=== PATIENT | male | born 1965 | race Caucasian/White ===

== ENCOUNTER 2022-02-15 09:26 | Inpatient (IN) | payer OTHER ==
[~2022-02-15] VITALS: Ht 182.9 cm; Wt 82.4 kg
[2022-02-15 09:48] LABS: HEMOGLOBIN 16.8 gm/dl (14.0-17.5); RED BLOOD COUNT 5.17 M/UL (4.20-5.50); WHITE BLOOD COUNT 6.9 K/UL (4.5-11.0)
[2022-02-15 10:11] LABS: BUN/CREATININE RATIO 17 (0-10)
[2022-02-15] MEDS ORDERED: METFORMIN HCL500 M2 PO (14:12)
[2022-02-15] MEDS ORDERED: ASPIRIN EC81 MG PO (14:13)
[2022-02-15] MEDS ORDERED: VARENICLINE TART1 MG PO (14:13)
[2022-02-15] MEDS ORDERED: LISINOPRIL2.5 MG PO (14:14)
[2022-02-15] MEDS ORDERED: ATORVASTATIN CA10 MG PO (14:14)
[2022-02-15] MEDS ORDERED: VIAGRA25 MG PO (14:16)
[2022-02-16 08:52] LABS: HEMOGLOBIN 16.2 gm/dl (14.0-17.5); RED BLOOD COUNT 5.02 M/UL (4.20-5.50); WHITE BLOOD COUNT 6.4 K/UL (4.5-11.0)
[2022-02-16 09:17] LABS: BUN/CREATININE RATIO 15 (0-10)
== END 2022-02-16 12:05 | disposition home or self-care (01) | DRG 92 ==
LOC: ER1 09:26 → CDU 12:30 → M/S 12:30
PROVIDERS: Emergency Medicine; Physician Assistant; ADMIT Internal Medicine
DX: G92.8 Other toxic encephalopathy (principal); N39.0 Urinary tract infection, site not specified; I10 Essential (primary) hypertension; E78.5 Hyperlipidemia, unspecified; Z79.01 Long term (current) use of anticoagulants; Z79.84 Long term (current) use of oral hypoglycemic drugs; G31.9 Degenerative disease of nervous system, unspecified; F15.10 Other stimulant abuse, uncomplicated; E11.65 Type 2 diabetes mellitus with hyperglycemia; Z91.14 Patient's other noncompliance with medication regimen
CPT/HCPCS: ECHO; 36415; 70450; 70551; 71045; 80053; 80307; 81001; 82140; 82550; 82553; 82607; 82962; 83036; 83605; 83690; 83735; 84439; 84443; 84484; 85025; 87040; 93005; 93306; 93880; 96374; 96375; 99285; G0480; J0696; J2543